=== PATIENT | female | born 1955 | race African-American/Black ===

== ENCOUNTER 2017-04-16 11:52 | Day surgery (SDC) | payer MEDICARE, MEDICAID ==
[~2017-04-16] VITALS: Ht 157.5 cm; Wt 83.9 kg
[~2017-04-16 11:52] MED LIST: BALANCED SALT IRRIG SOLN COMB1 500ML OP ONE
[2017-04-16] MEDS ORDERED: PHENYLEPHRINE HCL 10% OPHTH DROPS 5ML RIGHTEYE ONE (13:00)
[2017-04-16] MEDS ORDERED: TROPICAMIDE 1% OPHTH DROPS 15ML RIGHTEYE ONE (13:00)
[2017-04-16] MEDS ORDERED: CYCLOPENTOLATE HCL 1% OPHTH DROPS 2ML RIGHTEYE ONE (13:00)
[2017-04-16] MEDS ORDERED: LACTATED RINGERS 1,000 ML IV SCH (13:20)
[2017-04-16] MEDS ORDERED: TRAV2.5D BOTHEYE (13:25)
[2017-04-16] MEDS ORDERED: HYDR25TA PO (13:25)
[2017-04-16] MEDS ORDERED: LISI10TA5 PO (13:25)
[2017-04-16] MEDS ORDERED: ALBU05 IH (13:25)
[2017-04-16] MEDS ORDERED: ALBU90AE IH (13:25)
[2017-04-16] MEDS ORDERED: DOCU100C PO (13:25)
[2017-04-16] MEDS ORDERED: IBUP-1510 PO (13:25)
[2017-04-16] MEDS ORDERED: HYALURONATE SODIUM 14 MG/ML 0.85ML SYRINGE IO ONE (13:49)
[2017-04-16] MEDS ORDERED: MIDAZOLAM HCL 2 MG/2 ML VIAL ONE (15:14)
[2017-04-16] MEDS ORDERED: FENTANYL CITRATE/PF 50MCG/ML 2ML VIAL ONE (15:15)
[2017-04-16] MEDS ORDERED: PROPOFOL 200MG/20ML VIAL IV ONE (15:18)
[2017-04-16] MEDS ORDERED: LIDOCAINE HCL 1% 20ML VIAL (Pyxis) INJ ONE (15:18)
[2017-04-16] MEDS ORDERED: ONDANSETRON HCL 4MG/2ML VIAL ONE (15:24)
[2017-04-16] MEDS ORDERED: SODIUM CHLORIDE 0.9% 1,000 ML IV SCH (15:31)
[2017-04-16] MEDS ORDERED: ONDANSETRON HCL 4MG/2ML VIAL IV PRN ×2 (15:45→18:30)
[2017-04-16] MEDS ORDERED: MORPHINE SULFATE 2 MG/ML CPJ (NOT FOR IM USE) IV PRN (15:45)
[2017-04-16] MEDS ORDERED: ONDANSETRON HCL 4MG/2ML VIAL IV NR (18:30)
== END 2017-04-16 18:40 | disposition home or self-care (01) ==
LOC: OR 11:52
PROVIDERS: ATTEND Ophthalmology
DX: H25.9 Unspecified age-related cataract (principal); J44.9 Chronic obstructive pulmonary disease, unspecified; E66.9 Obesity, unspecified
CPT/HCPCS: 66984; J2250; J2405; J3010; J3490; J7120; V2632; J2704